=== PATIENT | female | born 1945 | race Caucasian/White ===

== ENCOUNTER 2021-05-26 20:48 | Emergency (ER) | payer MEDICARE, OTHER ==
[2021-05-26 22:53] LABS: HEMOGLOBIN 15.3 gm/dl (12.3-15.3); RED BLOOD COUNT 4.67 M/UL (4.00-5.10); WHITE BLOOD COUNT 8.4 K/UL (4.5-11.0)
== END 2021-05-27 03:40 | disposition home or self-care (01) ==
LOC: ER1 20:48
PROVIDERS: Physician Assistant Medical
DX: U07.1 COVID-19 (principal); E11.9 Type 2 diabetes mellitus without complications; Z90.49 Acquired absence of other specified parts of digestive tract; Z90.710 Acquired absence of both cervix and uterus; Z91.041 Radiographic dye allergy status; Z90.89 Acquired absence of other organs
CPT/HCPCS: 36600; 71045; 80053; 82803; 85025; 99285